=== PATIENT | female | born 1955 | race Asian ===

== ENCOUNTER → 2017-09-06 | Outpatient (CLI) | payer OTHER | END | disposition home or self-care (01) | LOC: RADPV 09:44 | PROVIDERS: ATTEND Internal Medicine Nephrology | DX: N18.3 Chronic kidney disease, stage 3 (moderate) (principal) | CPT/HCPCS: 76770 ==

== ENCOUNTER 2020-12-10 02:37 | Inpatient (IN) | payer OTHER ==
[~2020-12-10] VITALS: Ht 152.4 cm; Wt 53.0 kg
[2020-12-10 03:09] LABS: BASOPHILS % (AUTO) 1.1 % (0.0-2.0); EOSINOPHILS % (AUTO) 2.2 % (1.0-6.0); HEMATOCRIT 42.1 % (36-46); HEMOGLOBIN 13.8 g/dL (12.0-16.0); LYMPHOCYTES # (AUTO) 2.5 K/uL (1.0-4.8); LYMPHOCYTES % (AUTO) 21.6 % (22.0-44.0); MEAN CORPUSCULAR HEMOGLOBIN 28.7 pg (26.0-34.0); MEAN CORPUSCULAR HGB CONC 32.8 G/dL (31.0-37.0); MEAN CORPUSCULAR VOLUME 88 fL (80-100); MONOCYTES # (AUTO) 0.8 K/uL (0.1-1.0); MONOCYTES % (AUTO) 6.8 % (2.0-9.0); NEUTROPHILS % (AUTO) 68.3 % (40.0-70.0); PLATELET COUNT (AUTO) 256 K/uL (150-450); RED BLOOD CELL COUNT(AUTO) 4.81 MIL/uL (4.00-5.20); RED CELL DISTRIBUTION WIDTH 13.2 % (11.5-14.5)
[2020-12-10] MEDS ORDERED: SODIUM CHLORIDE 0.9% 100 ML ONE (03:14)
[2020-12-10] MEDS ORDERED: MORPHINE SULFATE 4 MG/ML SYRINGE IVP ONE (03:15)
[2020-12-10] MEDS ORDERED: ONDANSETRON HCL 4 MG/2 ML VIAL IVP ONE (03:15)
[2020-12-10] MEDS ORDERED: NiCARDipine HCL 25 MG in SODIUM CHLORIDE 0.9% 240 ML IV PRN ×2 (03:15→05:45)
[2020-12-10] MEDS ORDERED: IOHEXOL 350 MG/ML 100 ML VIAL ONE (03:15)
[2020-12-10 03:21] LABS: INR 0.9 (0.9-1.1); PROTHROMBIN TIME 9.7 SEC (9.4-11.6)
[2020-12-10 03:25] LABS: ALBUMIN 3.4 g/dL (3.4-5.0); BILIRUBIN,TOTAL 0.2 mg/dL (0.1-1.0); CALCIUM, TOTAL 8.7 mg/dL (8.8-10.5); CREATININE 2.7 mg/dL (0.60-1.30); POTASSIUM 3.7 mmol/L (3.5-5.1)
[2020-12-10] MEDS ORDERED: INSULIN REGULAR, HUMAN 100 UNITS/ML IVP ONE (04:00)
[2020-12-10 04:38] LABS: GLUCOSE,POINT OF CARE 465 MG/DL (70-110)
[2020-12-10 05:53] LABS: GLUCOSE,POINT OF CARE 444 MG/DL (70-110)
[2020-12-10] MEDS ORDERED: LINA5TAB PO (05:58)
[2020-12-10] MEDS ORDERED: SIMV-259 PO (05:58)
[2020-12-10] MEDS ORDERED: LOSA50TA37 PO (05:58)
[2020-12-10] MEDS ORDERED: ATEN100T92 PO (05:58)
[2020-12-10] MEDS ORDERED: CLON0.1T2 PO (05:58)
[2020-12-10] MEDS ORDERED: ASPI-1444 PO (05:58)
[2020-12-10] MEDS ORDERED: GLIP5 PO (05:58)
[2020-12-10] MEDS ORDERED: INSULIN GLARGINE,HUM.REC.ANLOG 100 UNITS/ML SQ ONE (06:00)
[2020-12-10] MEDS ORDERED: DEXTROSE 50%-WATER 25 GM/50 ML SYRINGE IVP PRN (06:00)
[2020-12-10] MEDS: INSULIN LISPRO 100 UNITS/ML SQ PRN ×4 (08:07→23:13)
[2020-12-10] MEDS: LevETIRAcetam 500 MG in DEXTROSE 5%-WATER 100 ML IV SCH ×2 (08:07→19:16)
[2020-12-10 09:13] LABS: GLUCOSE,POINT OF CARE 426 MG/DL (70-110)
[2020-12-10] MEDS: INSULIN GLARGINE,HUM.REC.ANLOG 100 UNITS/ML SQ SCH (09:53)
[2020-12-10 10:12] LABS: GLUCOSE,POINT OF CARE 426 MG/DL (70-110)
[2020-12-10 11:16] LABS: GLUCOSE,POINT OF CARE 355 MG/DL (70-110)
[2020-12-10 14:26] LABS: GLUCOSE,POINT OF CARE 125 MG/DL (70-110)
[2020-12-10 15:22] LABS: GLUCOSE,POINT OF CARE 110 MG/DL (70-110)
[2020-12-10 17:28] LABS: GLUCOSE,POINT OF CARE 154 MG/DL (70-110)
[2020-12-10 20:13] LABS: GLUCOSE,POINT OF CARE 220 MG/DL (70-110)
[2020-12-10] MEDS ORDERED: DEXTROSE 5%-0.45% SODIUM CHL 1,000 ML IV ONE (21:00)
[2020-12-10 21:31] LABS: COVID AG,FIA SOURCE NASOPHARYNGEAL
[2020-12-10] MEDS: ONDANSETRON HCL 4 MG/2 ML VIAL IVP PRN (21:56)
[2020-12-10 23:18] LABS: GLUCOSE,POINT OF CARE 191 MG/DL (70-110)
[2020-12-11] MEDS: INSULIN LISPRO 100 UNITS/ML SQ PRN ×6 (03:03→21:38)
[2020-12-11 03:22] LABS: GLUCOSE,POINT OF CARE 142 MG/DL (70-110)
[2020-12-11] MEDS: LevETIRAcetam 500 MG in DEXTROSE 5%-WATER 100 ML IV SCH ×2 (05:26→19:26)
[2020-12-11] MEDS: HydrALAZINE HCL 20 MG/ML VIAL IVP PRN (05:31)
[2020-12-11 05:33] LABS: GLUCOSE,POINT OF CARE 130 MG/DL (70-110)
[2020-12-11 05:53] LABS: BASOPHILS % (AUTO) 0.8 % (0.0-2.0); EOSINOPHILS % (AUTO) 1.2 % (1.0-6.0); HEMATOCRIT 41.4 % (36-46); HEMOGLOBIN 13.6 g/dL (12.0-16.0); LYMPHOCYTES # (AUTO) 3.1 K/uL (1.0-4.8); LYMPHOCYTES % (AUTO) 32.9 % (22.0-44.0); MEAN CORPUSCULAR HEMOGLOBIN 28.6 pg (26.0-34.0); MEAN CORPUSCULAR HGB CONC 32.9 G/dL (31.0-37.0); MEAN CORPUSCULAR VOLUME 87 fL (80-100); MONOCYTES # (AUTO) 0.7 K/uL (0.1-1.0); MONOCYTES % (AUTO) 7.3 % (2.0-9.0); NEUTROPHILS # (AUTO) 5.5 K/uL (1.8-7.7); NEUTROPHILS % (AUTO) 57.8 % (40.0-70.0); PLATELET COUNT (AUTO) 268 K/uL (150-450); RED BLOOD CELL COUNT(AUTO) 4.77 MIL/uL (4.00-5.20); RED CELL DISTRIBUTION WIDTH 13.1 % (11.5-14.5)
[2020-12-11 06:06] LABS: CREATININE 3.76 mg/dL (0.60-1.30); MAGNESIUM 2.3 mg/dL (1.80-2.40); PHOSPHORUS 4.6 mg/dL (2.5-4.9); POTASSIUM 3.5 mmol/L (3.5-5.1)
[2020-12-11 08:00] VITALS: BP 112/69
[2020-12-11] MEDS: INSULIN GLARGINE,HUM.REC.ANLOG 100 UNITS/ML SQ SCH (08:43)
[2020-12-11 09:09] LABS: GLUCOSE,POINT OF CARE 224 MG/DL (70-110)
[2020-12-11] MEDS: ONDANSETRON HCL 4 MG/2 ML VIAL IVP PRN (10:26)
[2020-12-11 12:00] VITALS: BP 124/62
[2020-12-11 13:12] LABS: GLUCOSE,POINT OF CARE 256 MG/DL (70-110)
[2020-12-11] MEDS: CHOLECALCIFEROL (VIT D3) 5,000 [125 MCG] UNITS CAPSULE PO SCH (14:45)
[2020-12-11 16:00] VITALS: BP 135/52
[2020-12-11] MEDS: AmLODIPine BESYLATE 5 MG TABLET PO SCH (17:23)
[2020-12-11 17:52] LABS: GLUCOSE,POINT OF CARE 169 MG/DL (70-110)
[2020-12-11 19:45] LABS: GLUCOSE,POINT OF CARE 128 MG/DL (70-110)
[2020-12-11 20:00] VITALS: BP 117/63
[2020-12-11] MEDS ORDERED: METOCLOPRAMIDE HCL 5 MG/ML 2 ML VIAL IVP PRN (21:15)
[2020-12-11 21:36] LABS: GLUCOSE,POINT OF CARE 237 MG/DL (70-110)
[2020-12-12] VITALS: BP 141/70
[2020-12-12] MEDS: INSULIN LISPRO 100 UNITS/ML SQ PRN ×5 (00:07→21:33)
[2020-12-12 00:16] LABS: GLUCOSE,POINT OF CARE 147 MG/DL (70-110)
[2020-12-12 02:50] LABS: GLUCOSE,POINT OF CARE 99 MG/DL (70-110)
[2020-12-12] MEDS: HydrALAZINE HCL 20 MG/ML VIAL IVP PRN ×2 (03:28→18:55)
[2020-12-12 04:00] VITALS: BP 114/61
[2020-12-12] MEDS: LevETIRAcetam 500 MG in DEXTROSE 5%-WATER 100 ML IV SCH ×2 (06:39→20:00)
[2020-12-12 08:00] VITALS: BP 126/75
[2020-12-12] MEDS: CHOLECALCIFEROL (VIT D3) 5,000 [125 MCG] UNITS CAPSULE PO SCH (09:00)
[2020-12-12] MEDS: AmLODIPine BESYLATE 5 MG TABLET PO SCH (09:00)
[2020-12-12] MEDS: INSULIN GLARGINE,HUM.REC.ANLOG 100 UNITS/ML SQ SCH (09:00)
[2020-12-12 09:18] LABS: GLUCOSE,POINT OF CARE 400 MG/DL (70-110)
[2020-12-12 12:00] VITALS: BP 132/94
[2020-12-12 15:50] LABS: GLUCOSE,POINT OF CARE 213 MG/DL (70-110)
[2020-12-12 15:50] LABS: GLUCOSE,POINT OF CARE 317 MG/DL (70-110)
[2020-12-12 15:51] LABS: GLUCOSE,POINT OF CARE 197 MG/DL (70-110)
[2020-12-12 16:00] VITALS: BP 142/94
[2020-12-12] MEDS: ONDANSETRON HCL 4 MG/2 ML VIAL IVP PRN (18:56)
[2020-12-12 19:58] LABS: GLUCOSE,POINT OF CARE 133 MG/DL (70-110)
[2020-12-12 20:00] VITALS: BP_SYST 142; BP_SYST 144; BP_DIAS 75
[2020-12-13] VITALS: BP 125/68
[2020-12-13] MEDS: INSULIN LISPRO 100 UNITS/ML SQ PRN ×6 (00:11→21:25)
[2020-12-13 01:33] LABS: GLUCOSE,POINT OF CARE 366 MG/DL (70-110)
[2020-12-13 01:33] LABS: GLUCOSE,POINT OF CARE 246 MG/DL (70-110)
[2020-12-13 02:49] LABS: GLUCOSE,POINT OF CARE 276 MG/DL (70-110)
[2020-12-13 04:00] VITALS: BP 142/80
[2020-12-13] MEDS: LevETIRAcetam 500 MG in DEXTROSE 5%-WATER 100 ML IV SCH ×2 (06:05→21:27)
[2020-12-13 06:50] LABS: GLUCOSE,POINT OF CARE 110 MG/DL (70-110)
[2020-12-13] MEDS: HydrALAZINE HCL 20 MG/ML VIAL IVP PRN (06:53)
[2020-12-13 08:00] VITALS: BP 137/82
[2020-12-13] MEDS: INSULIN GLARGINE,HUM.REC.ANLOG 100 UNITS/ML SQ SCH (09:00)
[2020-12-13] MEDS: CHOLECALCIFEROL (VIT D3) 5,000 [125 MCG] UNITS CAPSULE PO SCH (09:55)
[2020-12-13] MEDS: CARVEDILOL 6.25 MG TABLET PO SCH ×2 (09:55→21:25)
[2020-12-13] MEDS: AmLODIPine BESYLATE 5 MG TABLET PO SCH (09:55)
[2020-12-13 10:43] LABS: BASOPHILS % (AUTO) 1.2 % (0.0-2.0); EOSINOPHILS % (AUTO) 0.6 % (1.0-6.0); HEMATOCRIT 38.3 % (36-46); HEMOGLOBIN 12.5 g/dL (12.0-16.0); LYMPHOCYTES # (AUTO) 2.4 K/uL (1.0-4.8); LYMPHOCYTES % (AUTO) 20.2 % (22.0-44.0); MEAN CORPUSCULAR HEMOGLOBIN 28.5 pg (26.0-34.0); MEAN CORPUSCULAR HGB CONC 32.5 G/dL (31.0-37.0); MEAN CORPUSCULAR VOLUME 88 fL (80-100); MONOCYTES # (AUTO) 0.9 K/uL (0.1-1.0); MONOCYTES % (AUTO) 7.6 % (2.0-9.0); NEUTROPHILS # (AUTO) 8.4 K/uL (1.8-7.7); NEUTROPHILS % (AUTO) 70.4 % (40.0-70.0); PLATELET COUNT (AUTO) 254 K/uL (150-450); RED BLOOD CELL COUNT(AUTO) 4.36 MIL/uL (4.00-5.20); RED CELL DISTRIBUTION WIDTH 13.1 % (11.5-14.5)
[2020-12-13 11:01] LABS: CALCIUM, TOTAL 8.2 mg/dL (8.8-10.5); CREATININE 8.73 mg/dL (0.60-1.30); POTASSIUM 4.6 mmol/L (3.5-5.1)
[2020-12-13 11:05] LABS: MAGNESIUM 2.1 mg/dL (1.80-2.40); PHOSPHORUS 7.6 mg/dL (2.5-4.9)
[2020-12-13 12:00] VITALS: BP 126/74
[2020-12-13 12:15] LABS: GLUCOSE,POINT OF CARE 153 MG/DL (70-110)
[2020-12-13 12:15] LABS: GLUCOSE,POINT OF CARE 169 MG/DL (70-110)
[2020-12-13 12:16] LABS: GLUCOSE,POINT OF CARE 153 MG/DL (70-110)
[2020-12-13 15:33] LABS: GLUCOSE,POINT OF CARE 158 MG/DL (70-110)
[2020-12-13 16:00] VITALS: BP 143/79
[2020-12-13 18:37] LABS: GLUCOSE,POINT OF CARE 89 MG/DL (70-110)
[2020-12-13 20:00] VITALS: BP 137/50
[2020-12-14] VITALS: BP 158/74
[2020-12-14 00:38] LABS: GLUCOSE,POINT OF CARE 311 MG/DL (70-110)
[2020-12-14] MEDS: INSULIN LISPRO 100 UNITS/ML SQ PRN ×4 (00:38→21:05)
[2020-12-14 01:23] LABS: GLUCOSE,POINT OF CARE 265 MG/DL (70-110)
[2020-12-14 04:00] VITALS: BP 136/56
[2020-12-14 08:00] VITALS: BP 136/77
[2020-12-14] MEDS: CARVEDILOL 6.25 MG TABLET PO SCH ×2 (08:18→20:56)
[2020-12-14] MEDS: LevETIRAcetam 500 MG in DEXTROSE 5%-WATER 100 ML IV SCH ×2 (08:18→20:55)
[2020-12-14] MEDS: CHOLECALCIFEROL (VIT D3) 5,000 [125 MCG] UNITS CAPSULE PO SCH (08:19)
[2020-12-14] MEDS: AmLODIPine BESYLATE 5 MG TABLET PO SCH (08:19)
[2020-12-14] MEDS: INSULIN GLARGINE,HUM.REC.ANLOG 100 UNITS/ML SQ SCH (08:20)
[2020-12-14 08:21] LABS: GLUCOSE,POINT OF CARE 129 MG/DL (70-110)
[2020-12-14 08:21] LABS: GLUCOSE,POINT OF CARE 152 MG/DL (70-110)
[2020-12-14 08:21] LABS: GLUCOSE,POINT OF CARE 80 MG/DL (70-110)
[2020-12-14 10:31] LABS: EOSINOPHILS % (AUTO) 1.4 % (1.0-6.0); HEMATOCRIT 37.9 % (36-46); HEMOGLOBIN 12.2 g/dL (12.0-16.0); LYMPHOCYTES % (AUTO) 22.5 % (22.0-44.0); MEAN CORPUSCULAR HEMOGLOBIN 28.6 pg (26.0-34.0); MEAN CORPUSCULAR HGB CONC 32.2 G/dL (31.0-37.0); MEAN CORPUSCULAR VOLUME 89 fL (80-100); MONOCYTES # (AUTO) 0.5 K/uL (0.1-1.0); MONOCYTES % (AUTO) 6.2 % (2.0-9.0); NEUTROPHILS % (AUTO) 68.9 % (40.0-70.0); PLATELET COUNT (AUTO) 253 K/uL (150-450); RED BLOOD CELL COUNT(AUTO) 4.27 MIL/uL (4.00-5.20); RED CELL DISTRIBUTION WIDTH 13.2 % (11.5-14.5)
[2020-12-14] MEDS: SODIUM CHLORIDE 0.9% 1,000 ML IV SCH ×2 (10:31→23:20)
[2020-12-14 10:41] LABS: CREATININE 9.23 mg/dL (0.60-1.30); POTASSIUM 5.5 mmol/L (3.5-5.1)
[2020-12-14 11:43] LABS: APPEARANCE,URINE CLEAR (CLEAR); BILIRUBIN,URINE NEGATIVE (NEGATIVE); GLUCOSE, URINE (UA) 250 mg/dL (NEGATIVE); KETONES,URINE NEGATIVE (NEGATIVE); LEUKOCYTE ESTERASE ,URINE TRACE (NEGATIVE); NITRATE,URINE NEGATIVE (NEGATIVE); OCCULT BLOOD,URINE MODERATE (NEGATIVE); PH,URINE 5.5 (5.0-8.0); PROTEIN,URINE SEE CONFIRM (NEGATIVE); UROBILINOGEN,URINE 0.2 mg/dL (<=1.0)
[2020-12-14 11:46] LABS: CREATININE,URINE RANDOM 35.2 mg/dL (30.0-125.0); PROTEIN,URINE RANDOM 189 mg/dL (0-11.9); SODIUM,URINE RANDOM 42 mmol/l (20-110)
[2020-12-14 12:00] VITALS: BP 150/51
[2020-12-14 12:01] LABS: SULFOSALICYLIC ACID,URINE 2+ (Negative)
[2020-12-14 12:03] LABS: BACTERIA,URINE None Seen /HPF (None Seen); SQUAMOUS EPITHELIAL CELL,UR Few /LPF (None Seen)
[2020-12-14 12:06] LABS: GLUCOSE,POINT OF CARE 301 MG/DL (70-110)
[2020-12-14 16:00] VITALS: BP 132/57
[2020-12-14 17:25] LABS: GLUCOSE,POINT OF CARE 214 MG/DL (70-110)
[2020-12-14 20:00] VITALS: BP 144/77
[2020-12-14 21:14] LABS: GLUCOSE,POINT OF CARE 313 MG/DL (70-110)
[2020-12-15] VITALS: BP 124/63
[2020-12-15 04:00] VITALS: BP 138/73
[2020-12-15] MEDS: INSULIN LISPRO 100 UNITS/ML SQ PRN ×3 (06:31→12:30)
[2020-12-15 06:37] LABS: GLUCOSE,POINT OF CARE 157 MG/DL (70-110)
[2020-12-15 06:40] LABS: CALCIUM, TOTAL 7.5 mg/dL (8.8-10.5); CHOL/HDL RATIO 4.5 (3.9-5.7); CREATININE 8.22 mg/dL (0.60-1.30); MAGNESIUM 2.5 mg/dL (1.80-2.40); PHOSPHORUS 7.8 mg/dL (2.5-4.9); POTASSIUM 4.6 mmol/L (3.5-5.1)
[2020-12-15 07:54] LABS: GLUCOSE,POINT OF CARE 115 MG/DL (70-110)
[2020-12-15 08:00] VITALS: BP 182/70
[2020-12-15] MEDS: AmLODIPine BESYLATE 5 MG TABLET PO SCH (08:00)
[2020-12-15] MEDS: LevETIRAcetam 500 MG in DEXTROSE 5%-WATER 100 ML IV SCH ×2 (08:00→20:28)
[2020-12-15] MEDS: CARVEDILOL 6.25 MG TABLET PO SCH ×2 (08:00→20:32)
[2020-12-15] MEDS: CHOLECALCIFEROL (VIT D3) 5,000 [125 MCG] UNITS CAPSULE PO SCH (08:05)
[2020-12-15] MEDS: HydrALAZINE HCL 20 MG/ML VIAL IVP PRN (08:44)
[2020-12-15] MEDS: INSULIN GLARGINE,HUM.REC.ANLOG 100 UNITS/ML SQ SCH (09:00)
[2020-12-15 12:00] VITALS: BP 119/69
[2020-12-15] MEDS: SODIUM BICARBONATE 650 MG TABLET PO SCH ×2 (12:29→20:27)
[2020-12-15 14:04] LABS: COVID AG,FIA SOURCE NASAL SWAB
[2020-12-15 16:00] VITALS: BP 148/80
[2020-12-15 17:43] LABS: GLUCOSE,POINT OF CARE 142 MG/DL (70-110)
[2020-12-15 17:43] LABS: GLUCOSE,POINT OF CARE 244 MG/DL (70-110)
[2020-12-15 20:00] VITALS: BP 141/93
[2020-12-15 23:25] LABS: GLUCOSE,POINT OF CARE 276 MG/DL (70-110)
[2020-12-16] VITALS: BP 144/72
[2020-12-16 04:00] VITALS: BP 135/78
[2020-12-16 05:35] LABS: CALCIUM, TOTAL 7.9 mg/dL (8.8-10.5); CREATININE 6.06 mg/dL (0.60-1.30); MAGNESIUM 2.3 mg/dL (1.80-2.40); PHOSPHORUS 6.2 mg/dL (2.5-4.9)
[2020-12-16] MEDS: CARVEDILOL 6.25 MG TABLET PO SCH (09:05)
[2020-12-16] MEDS: AmLODIPine BESYLATE 5 MG TABLET PO SCH (09:05)
[2020-12-16] MEDS: CHOLECALCIFEROL (VIT D3) 5,000 [125 MCG] UNITS CAPSULE PO SCH (09:06)
[2020-12-16] MEDS: SODIUM BICARBONATE 650 MG TABLET PO SCH (09:06)
[2020-12-16] MEDS: INSULIN GLARGINE,HUM.REC.ANLOG 100 UNITS/ML SQ SCH (09:15)
[2020-12-16 09:45] VITALS: BP 157/76
[2020-12-16] MEDS: LevETIRAcetam 500 MG in DEXTROSE 5%-WATER 100 ML IV SCH (10:27)
[2020-12-16 11:42] VITALS: BP 148/80
[2020-12-16 12:09] LABS: GLUCOSE,POINT OF CARE 102 MG/DL (70-110)
[2020-12-16] MEDS: INSULIN LISPRO 100 UNITS/ML SQ PRN (13:05)
[2020-12-16 15:46] VITALS: BP 157/78
[2020-12-16] MEDS ORDERED: AMLO-257 PO (16:29)
[2020-12-16] MEDS ORDERED: ATOR20TA86 PO (16:29)
[2020-12-16] MEDS ORDERED: CHOL500013 PO (16:30)
[2020-12-16] MEDS ORDERED: CARV6 PO (16:30)
[2020-12-16] MEDS ORDERED: LEVE500T53 PO (16:31)
[2020-12-16] MEDS ORDERED: INSLAN SQ (16:31)
[2020-12-16] MEDS ORDERED: SODI650T33 PO (16:32)
[2020-12-16] MEDS ORDERED: INSU100V SQ (16:33)
[2020-12-16 16:42] VITALS: BP 130/92
[2020-12-16 18:16] LABS: GLUCOMETER DEV NAME(LOC) 5S.1; GLUCOSE,POINT OF CARE 294 MG/DL (70-110)
[2020-12-16 18:16] LABS: GLUCOMETER DEV NAME(LOC) 5S.1; GLUCOSE,POINT OF CARE 251 MG/DL (70-110)
[2020-12-16 18:16] LABS: GLUCOMETER DEV NAME(LOC) 5S.1; GLUCOSE,POINT OF CARE 401 MG/DL (70-110)
[2020-12-16 18:16] LABS: GLUCOMETER DEV NAME(LOC) 5S.1; GLUCOSE,POINT OF CARE 71 MG/DL (70-110)
[2020-12-16] MEDS ORDERED: ATORVASTATIN CALCIUM 20 MG TABLET PO SCH (21:00)
== END 2020-12-16 17:55 | DRG 44 ==
LOC: EMS 02:41 → ICU 22:11 → 5S 12-16 09:30
PROVIDERS: ADMIT Internal Medicine; ATTEND Internal Medicine
DX: I61.4 Nontraumatic intracerebral hemorrhage in cerebellum (principal); I63.9 Cerebral infarction, unspecified; G93.6 Cerebral edema; N17.9 Acute kidney failure, unspecified; E11.319 Type 2 diabetes mellitus with unspecified diabetic retinopathy without macular edema; E11.22 Type 2 diabetes mellitus with diabetic chronic kidney disease; I12.9 Hypertensive chronic kidney disease with stage 1 through stage 4 chronic kidney disease, or unspecified chronic kidney disease; I16.1 Hypertensive emergency; N18.4 Chronic kidney disease, stage 4 (severe); N25.81 Secondary hyperparathyroidism of renal origin; R29.710 NIHSS score 10; E11.65 Type 2 diabetes mellitus with hyperglycemia; Z20.822 Contact with and (suspected) exposure to COVID-19; Z79.4 Long term (current) use of insulin; Z79.899 Other long term (current) drug therapy; Z82.49 Family history of ischemic heart disease and other diseases of the circulatory system; Z83.3 Family history of diabetes mellitus; Z91.14 Patient's other noncompliance with medication regimen
CPT/HCPCS: 70450; 70496; 70551; 71045; 76770; 80048; 80053; 80061; 81001; 81002; 82306; 82570; 82947; 82962; 83036; 83735; 83935; 83970; 84100; 84156; 84300; 84484; 85025; 85610; 85730; 86850; 86900; 86901; 87081; 92507; 92526; 92610; 93005; 93306; 97110; 97112; 97116; 97162; 97166; 97530; 97535; 99291; G0378; J0360; J0712; J1815; J2405; J2765; J3490; J7030; J7050; J7060; Q9967; 36415-L1; 36415-TC

== ENCOUNTER 2020-12-16 17:55 | Inpatient (IN) | payer OTHER ==
[~2020-12-16] VITALS: Ht 152.4 cm; Wt 52.2 kg
[~2020-12-16 17:55] MED LIST: AMLO-257 PO; ASPI-1444 PO; ATEN100T92 PO; ATOR20TA86 PO; CARV6 PO; CHOL500013 PO; CLON0.1T2 PO; GLIP5 PO; INSLAN SQ; INSU100V SQ; LEVE500T20 PO; LINA5TAB PO; LOSA50TA37 PO; SIMV-259 PO; SODI650T33 PO
[2020-12-16 18:10] VITALS: BP 149/85
[2020-12-16] MEDS ORDERED: ACETAMINOPHEN 325 MG TABLET PO PRN (20:15)
[2020-12-16] MEDS ORDERED: DEXTROSE 50%-WATER 25 GM/50 ML SYRINGE IVP PRN (20:30)
[2020-12-16] MEDS: SENNA 187 MG TABLET PO SCH (21:00)
[2020-12-16] MEDS: DOCUSATE SODIUM 100 MG CAPSULE PO SCH (21:00)
[2020-12-16 22:00] VITALS: BP 135/77
[2020-12-16] MEDS: LevETIRAcetam 500 MG TABLET PO SCH (22:00)
[2020-12-16] MEDS: ATORVASTATIN CALCIUM 20 MG TABLET PO SCH (22:00)
[2020-12-16] MEDS: CARVEDILOL 6.25 MG TABLET PO SCH (22:00)
[2020-12-16] MEDS: INSULIN LISPRO 100 UNITS/ML SQ PRN (22:02)
[2020-12-16] MEDS: SODIUM BICARBONATE 650 MG TABLET PO SCH (22:02)
[2020-12-17 03:05] LABS: GLUCOMETER DEV NAME(LOC) 2WR.1C; GLUCOSE,POINT OF CARE 351 MG/DL (70-110)
[2020-12-17 06:19] LABS: GLUCOMETER DEV NAME(LOC) 2WR.1C; GLUCOSE,POINT OF CARE 249 MG/DL (70-110)
[2020-12-17 06:31] LABS: BASOPHILS % (AUTO) 0.9 % (0.0-2.0); EOSINOPHILS % (AUTO) 2.6 % (1.0-6.0); HEMATOCRIT 34.2 % (36-46); HEMOGLOBIN 11.3 g/dL (12.0-16.0); LYMPHOCYTES # (AUTO) 2.1 K/uL (1.0-4.8); MEAN CORPUSCULAR HGB CONC 32.9 G/dL (31.0-37.0); MEAN CORPUSCULAR VOLUME 88 fL (80-100); MONOCYTES % (AUTO) 11.1 % (2.0-9.0); NEUTROPHILS # (AUTO) 5.3 K/uL (1.8-7.7); NEUTROPHILS % (AUTO) 61.4 % (40.0-70.0); PLATELET COUNT (AUTO) 265 K/uL (150-450); RED BLOOD CELL COUNT(AUTO) 3.89 MIL/uL (4.00-5.20); RED CELL DISTRIBUTION WIDTH 12.7 % (11.5-14.5)
[2020-12-17 06:52] LABS: ALBUMIN 2.6 g/dL (3.4-5.0); BILIRUBIN,TOTAL 0.2 mg/dL (0.1-1.0); CALCIUM, TOTAL 8.3 mg/dL (8.8-10.5); CREATININE 4.67 mg/dL (0.60-1.30); POTASSIUM 4.9 mmol/L (3.5-5.1); TOTAL PROTEIN, SERUM 7.2 g/dL (6.4-8.2)
[2020-12-17 07:55] VITALS: BP 138/75
[2020-12-17] MEDS: INSULIN GLARGINE,HUM.REC.ANLOG 100 UNITS/ML SQ SCH (08:32)
[2020-12-17] MEDS: INSULIN LISPRO 100 UNITS/ML SQ PRN ×3 (08:33→21:26)
[2020-12-17] MEDS: LevETIRAcetam 500 MG TABLET PO SCH ×2 (08:35→21:18)
[2020-12-17] MEDS: AmLODIPine BESYLATE 5 MG TABLET PO SCH (08:35)
[2020-12-17] MEDS: DOCUSATE SODIUM 100 MG CAPSULE PO SCH ×2 (08:35→21:18)
[2020-12-17] MEDS: CARVEDILOL 6.25 MG TABLET PO SCH ×2 (08:35→21:17)
[2020-12-17] MEDS: CHOLECALCIFEROL (VIT D3) 5,000 [125 MCG] UNITS CAPSULE PO SCH (08:35)
[2020-12-17] MEDS: SODIUM BICARBONATE 650 MG TABLET PO SCH ×2 (08:36→21:17)
[2020-12-17 17:31] LABS: GLUCOMETER DEV NAME(LOC) 2WR.2B; GLUCOSE,POINT OF CARE 104 MG/DL (70-110)
[2020-12-17] MEDS: SENNA 187 MG TABLET PO SCH (21:17)
[2020-12-17 21:18] VITALS: BP 136/84
[2020-12-17] MEDS: ATORVASTATIN CALCIUM 20 MG TABLET PO SCH (21:18)
[2020-12-17] MEDS: ETHYL ALCOHOL 62% ANTISEPTIC NASAL INHALANT 0.6 ML AMPUL NASAL SCH (21:28)
[2020-12-17 22:38] LABS: GLUCOMETER DEV NAME(LOC) 2WR.2B; GLUCOSE,POINT OF CARE 227 MG/DL (70-110)
[2020-12-17 23:53] LABS: GLUCOMETER DEV NAME(LOC) 2WR.1C; GLUCOSE,POINT OF CARE 253 MG/DL (70-110)
[2020-12-18] VITALS: BP 122/65
[2020-12-18 06:23] LABS: GLUCOMETER DEV NAME(LOC) 2WR.2B; GLUCOSE,POINT OF CARE 283 MG/DL (70-110)
[2020-12-18] MEDS: SODIUM BICARBONATE 650 MG TABLET PO SCH ×2 (08:50→20:24)
[2020-12-18] MEDS: CARVEDILOL 6.25 MG TABLET PO SCH ×2 (08:50→20:24)
[2020-12-18] MEDS: CHOLECALCIFEROL (VIT D3) 5,000 [125 MCG] UNITS CAPSULE PO SCH (08:50)
[2020-12-18] MEDS: AmLODIPine BESYLATE 5 MG TABLET PO SCH (08:50)
[2020-12-18] MEDS: LevETIRAcetam 500 MG TABLET PO SCH ×2 (08:50→20:24)
[2020-12-18] MEDS: DOCUSATE SODIUM 100 MG CAPSULE PO SCH ×2 (08:50→20:24)
[2020-12-18] MEDS: INSULIN GLARGINE,HUM.REC.ANLOG 100 UNITS/ML SQ SCH (08:52)
[2020-12-18] MEDS: INSULIN LISPRO 100 UNITS/ML SQ PRN ×4 (08:53→20:35)
[2020-12-18] MEDS: ETHYL ALCOHOL 62% ANTISEPTIC NASAL INHALANT 0.6 ML AMPUL NASAL SCH ×2 (08:54→20:24)
[2020-12-18 09:17] VITALS: BP 124/76
[2020-12-18 12:40] LABS: GLUCOMETER DEV NAME(LOC) 2WR.1C; GLUCOSE,POINT OF CARE 289 MG/DL (70-110)
[2020-12-18 16:02] VITALS: BP 138/74
[2020-12-18 19:25] LABS: GLUCOMETER DEV NAME(LOC) 2WR.2B; GLUCOSE,POINT OF CARE 145 MG/DL (70-110)
[2020-12-18 20:23] VITALS: BP 135/76
[2020-12-18] MEDS: SENNA 187 MG TABLET PO SCH (20:24)
[2020-12-18] MEDS: ATORVASTATIN CALCIUM 20 MG TABLET PO SCH (20:24)
[2020-12-19 02:00] VITALS: BP 130/74
[2020-12-19 04:36] LABS: GLUCOMETER DEV NAME(LOC) 2WR.1C; GLUCOSE,POINT OF CARE 378 MG/DL (70-110)
[2020-12-19 05:51] LABS: GLUCOMETER DEV NAME(LOC) 2WR.2B; GLUCOSE,POINT OF CARE 303 MG/DL (70-110)
[2020-12-19] MEDS: SODIUM BICARBONATE 650 MG TABLET PO SCH ×2 (07:53→20:06)
[2020-12-19] MEDS: AmLODIPine BESYLATE 5 MG TABLET PO SCH (07:54)
[2020-12-19] MEDS: CHOLECALCIFEROL (VIT D3) 5,000 [125 MCG] UNITS CAPSULE PO SCH (07:54)
[2020-12-19] MEDS: DOCUSATE SODIUM 100 MG CAPSULE PO SCH ×2 (07:55→20:05)
[2020-12-19] MEDS: CARVEDILOL 6.25 MG TABLET PO SCH ×2 (07:55→20:05)
[2020-12-19] MEDS: LevETIRAcetam 500 MG TABLET PO SCH ×2 (07:56→20:05)
[2020-12-19] MEDS: INSULIN LISPRO 100 UNITS/ML SQ PRN ×4 (08:16→21:40)
[2020-12-19] MEDS: ETHYL ALCOHOL 62% ANTISEPTIC NASAL INHALANT 0.6 ML AMPUL NASAL SCH ×2 (08:18→20:05)
[2020-12-19] MEDS ORDERED: INSULIN GLARGINE,HUM.REC.ANLOG 100 UNITS/ML SQ SCH (09:00)
[2020-12-19 09:31] VITALS: BP 131/79
[2020-12-19 12:35] LABS: GLUCOMETER DEV NAME(LOC) 2WR.1C; GLUCOSE,POINT OF CARE 168 MG/DL (70-110)
[2020-12-19 13:16] LABS: CALCIUM, TOTAL 8.9 mg/dL (8.8-10.5); CREATININE 3.32 mg/dL (0.60-1.30); PHOSPHORUS 3.8 mg/dL (2.5-4.9); POTASSIUM 4.1 mmol/L (3.5-5.1)
[2020-12-19 17:00] VITALS: BP 149/95
[2020-12-19 18:55] LABS: GLUCOMETER DEV NAME(LOC) 2WR.1C; GLUCOSE,POINT OF CARE 233 MG/DL (70-110)
[2020-12-19 20:05] VITALS: BP 139/77
[2020-12-19] MEDS: SENNA 187 MG TABLET PO SCH (20:05)
[2020-12-19] MEDS: ATORVASTATIN CALCIUM 20 MG TABLET PO SCH (20:06)
[2020-12-19 23:31] LABS: GLUCOMETER DEV NAME(LOC) 2WR.2B; GLUCOSE,POINT OF CARE 203 MG/DL (70-110)
[2020-12-20] VITALS: BP 118/69
[2020-12-20] MEDS: ETHYL ALCOHOL 62% ANTISEPTIC NASAL INHALANT 0.6 ML AMPUL NASAL SCH ×2 (08:01→19:59)
[2020-12-20] MEDS: CARVEDILOL 6.25 MG TABLET PO SCH ×2 (08:02→19:59)
[2020-12-20] MEDS: DOCUSATE SODIUM 100 MG CAPSULE PO SCH ×2 (08:02→19:46)
[2020-12-20] MEDS: CHOLECALCIFEROL (VIT D3) 5,000 [125 MCG] UNITS CAPSULE PO SCH (08:02)
[2020-12-20] MEDS: SODIUM BICARBONATE 650 MG TABLET PO SCH (08:02)
[2020-12-20] MEDS: AmLODIPine BESYLATE 5 MG TABLET PO SCH (08:02)
[2020-12-20] MEDS: LevETIRAcetam 500 MG TABLET PO SCH ×2 (08:02→19:59)
[2020-12-20] MEDS: INSULIN LISPRO 100 UNITS/ML SQ PRN ×4 (08:08→20:01)
[2020-12-20 08:15] VITALS: BP 135/76
[2020-12-20] MEDS ORDERED: INSULIN GLARGINE,HUM.REC.ANLOG 100 UNITS/ML SQ SCH (09:00)
[2020-12-20 14:17] LABS: GLUCOMETER DEV NAME(LOC) 2WR.2B; GLUCOSE,POINT OF CARE 253 MG/DL (70-110)
[2020-12-20 14:29] LABS: GLUCOMETER DEV NAME(LOC) 2WR.1C; GLUCOSE,POINT OF CARE 153 MG/DL (70-110)
[2020-12-20 16:04] VITALS: BP 136/87
[2020-12-20 18:35] LABS: GLUCOMETER DEV NAME(LOC) 2WR.1C; GLUCOSE,POINT OF CARE 219 MG/DL (70-110)
[2020-12-20] MEDS: SENNA 187 MG TABLET PO SCH (19:46)
[2020-12-20] MEDS: ATORVASTATIN CALCIUM 20 MG TABLET PO SCH (19:59)
[2020-12-20 21:44] LABS: GLUCOMETER DEV NAME(LOC) 2WR.2B; GLUCOSE,POINT OF CARE 318 MG/DL (70-110)
[2020-12-21 03:50] VITALS: BP 126/84
[2020-12-21 06:20] LABS: GLUCOMETER DEV NAME(LOC) 2WR.2B; GLUCOSE,POINT OF CARE 217 MG/DL (70-110)
[2020-12-21] MEDS: LevETIRAcetam 500 MG TABLET PO SCH ×2 (07:57→20:26)
[2020-12-21] MEDS: CHOLECALCIFEROL (VIT D3) 5,000 [125 MCG] UNITS CAPSULE PO SCH (07:58)
[2020-12-21] MEDS: AmLODIPine BESYLATE 5 MG TABLET PO SCH (07:58)
[2020-12-21] MEDS: CARVEDILOL 6.25 MG TABLET PO SCH ×2 (07:58→20:26)
[2020-12-21] MEDS: ETHYL ALCOHOL 62% ANTISEPTIC NASAL INHALANT 0.6 ML AMPUL NASAL SCH ×2 (08:01→20:26)
[2020-12-21] MEDS: INSULIN LISPRO 100 UNITS/ML SQ PRN ×4 (08:01→20:33)
[2020-12-21] MEDS: DOCUSATE SODIUM 100 MG CAPSULE PO SCH ×2 (09:00→20:27)
[2020-12-21] MEDS ORDERED: INSULIN GLARGINE,HUM.REC.ANLOG 100 UNITS/ML SQ SCH (09:00)
[2020-12-21 09:36] VITALS: BP 134/84
[2020-12-21 16:01] VITALS: BP 131/80
[2020-12-21 16:03] LABS: GLUCOMETER DEV NAME(LOC) 2WR.1C; GLUCOSE,POINT OF CARE 168 MG/DL (70-110)
[2020-12-21 18:42] LABS: GLUCOMETER DEV NAME(LOC) 2WR.2B; GLUCOSE,POINT OF CARE 337 MG/DL (70-110)
[2020-12-21] MEDS: ATORVASTATIN CALCIUM 20 MG TABLET PO SCH (20:26)
[2020-12-21] MEDS: SENNA 187 MG TABLET PO SCH (20:27)
[2020-12-21 21:12] LABS: GLUCOMETER DEV NAME(LOC) 2WR.2B; GLUCOSE,POINT OF CARE 224 MG/DL (70-110)
[2020-12-22 03:15] VITALS: BP 141/73
[2020-12-22 05:36] LABS: GLUCOMETER DEV NAME(LOC) 2WR.1C; GLUCOSE,POINT OF CARE 169 MG/DL (70-110)
[2020-12-22 07:07] LABS: BASOPHILS % (AUTO) 1.2 % (0.0-2.0); EOSINOPHILS % (AUTO) 2.2 % (1.0-6.0); HEMATOCRIT 35.9 % (36-46); HEMOGLOBIN 11.8 g/dL (12.0-16.0); LYMPHOCYTES # (AUTO) 1.8 K/uL (1.0-4.8); LYMPHOCYTES % (AUTO) 17.5 % (22.0-44.0); MEAN CORPUSCULAR HEMOGLOBIN 28.8 pg (26.0-34.0); MEAN CORPUSCULAR VOLUME 87 fL (80-100); MONOCYTES # (AUTO) 0.8 K/uL (0.1-1.0); MONOCYTES % (AUTO) 7.6 % (2.0-9.0); NEUTROPHILS # (AUTO) 7.5 K/uL (1.8-7.7); NEUTROPHILS % (AUTO) 71.5 % (40.0-70.0); PLATELET COUNT (AUTO) 301 K/uL (150-450); RED BLOOD CELL COUNT(AUTO) 4.11 MIL/uL (4.00-5.20); RED CELL DISTRIBUTION WIDTH 12.7 % (11.5-14.5)
[2020-12-22 07:15] LABS: CALCIUM, TOTAL 8.6 mg/dL (8.8-10.5); CREATININE 3.1 mg/dL (0.60-1.30); PHOSPHORUS 3.1 mg/dL (2.5-4.9)
[2020-12-22] MEDS: ETHYL ALCOHOL 62% ANTISEPTIC NASAL INHALANT 0.6 ML AMPUL NASAL SCH ×2 (07:55→21:11)
[2020-12-22] MEDS: CHOLECALCIFEROL (VIT D3) 5,000 [125 MCG] UNITS CAPSULE PO SCH (07:55)
[2020-12-22] MEDS: LevETIRAcetam 500 MG TABLET PO SCH ×2 (07:56→21:12)
[2020-12-22] MEDS: DOCUSATE SODIUM 100 MG CAPSULE PO SCH ×2 (07:56→21:12)
[2020-12-22] MEDS: AmLODIPine BESYLATE 5 MG TABLET PO SCH (07:56)
[2020-12-22] MEDS: CARVEDILOL 6.25 MG TABLET PO SCH ×2 (07:56→21:12)
[2020-12-22] MEDS: INSULIN LISPRO 100 UNITS/ML SQ PRN ×4 (07:57→21:13)
[2020-12-22] MEDS: INSULIN GLARGINE,HUM.REC.ANLOG 100 UNITS/ML SQ SCH (07:58)
[2020-12-22] MEDS ORDERED: INSULIN GLARGINE,HUM.REC.ANLOG 100 UNITS/ML SQ SCH (09:00)
[2020-12-22 09:40] VITALS: BP 127/77
[2020-12-22] MEDS ORDERED: *PATIENT'S OWN MED [ENTER DRUG, DOSE, FREQUENCY IN COMMENTS] CLINICAL ONE (11:00)
[2020-12-22] MEDS: TRULICITY 0.75 MG/0.5 ML SQ SCH (13:17)
[2020-12-22 14:52] LABS: GLUCOMETER DEV NAME(LOC) 2WR.1C; GLUCOSE,POINT OF CARE 243 MG/DL (70-110)
[2020-12-22 16:10] VITALS: BP 135/73
[2020-12-22 20:15] LABS: GLUCOMETER DEV NAME(LOC) 2WR.1C; GLUCOSE,POINT OF CARE 226 MG/DL (70-110)
[2020-12-22 21:10] VITALS: BP 139/82
[2020-12-22] MEDS: SENNA 187 MG TABLET PO SCH (21:12)
[2020-12-22] MEDS: ATORVASTATIN CALCIUM 20 MG TABLET PO SCH (21:12)
[2020-12-22 21:43] LABS: GLUCOMETER DEV NAME(LOC) 2WR.2B; GLUCOSE,POINT OF CARE 198 MG/DL (70-110)
[2020-12-23 03:13] VITALS: BP 139/79
[2020-12-23 06:18] LABS: GLUCOMETER DEV NAME(LOC) 2WR.2B; GLUCOSE,POINT OF CARE 158 MG/DL (70-110)
[2020-12-23] MEDS: AmLODIPine BESYLATE 5 MG TABLET PO SCH (08:05)
[2020-12-23] MEDS: CARVEDILOL 6.25 MG TABLET PO SCH ×2 (08:05→20:37)
[2020-12-23] MEDS: ETHYL ALCOHOL 62% ANTISEPTIC NASAL INHALANT 0.6 ML AMPUL NASAL SCH ×2 (08:05→20:35)
[2020-12-23] MEDS: LevETIRAcetam 500 MG TABLET PO SCH ×2 (08:05→20:37)
[2020-12-23] MEDS: CHOLECALCIFEROL (VIT D3) 5,000 [125 MCG] UNITS CAPSULE PO SCH (08:06)
[2020-12-23] MEDS: DOCUSATE SODIUM 100 MG CAPSULE PO SCH ×2 (08:06→20:37)
[2020-12-23] MEDS: INSULIN GLARGINE,HUM.REC.ANLOG 100 UNITS/ML SQ SCH (08:08)
[2020-12-23] MEDS: INSULIN LISPRO 100 UNITS/ML SQ PRN ×4 (08:10→20:36)
[2020-12-23 09:13] VITALS: BP 126/74
[2020-12-23 12:06] LABS: GLUCOMETER DEV NAME(LOC) 2WR.2B; GLUCOSE,POINT OF CARE 154 MG/DL (70-110)
[2020-12-23 16:00] VITALS: BP 128/75
[2020-12-23 19:17] LABS: GLUCOMETER DEV NAME(LOC) 2WR.2B; GLUCOSE,POINT OF CARE 149 MG/DL (70-110)
[2020-12-23 20:32] VITALS: BP 126/83
[2020-12-23] MEDS: SENNA 187 MG TABLET PO SCH (20:37)
[2020-12-23] MEDS: ATORVASTATIN CALCIUM 20 MG TABLET PO SCH (20:37)
[2020-12-23 21:02] LABS: GLUCOMETER DEV NAME(LOC) 2WR.2B; GLUCOSE,POINT OF CARE 150 MG/DL (70-110)
[2020-12-24 02:15] VITALS: BP 129/77
[2020-12-24 05:43] LABS: GLUCOMETER DEV NAME(LOC) 2WR.2B; GLUCOSE,POINT OF CARE 183 MG/DL (70-110)
[2020-12-24] MEDS: CARVEDILOL 6.25 MG TABLET PO SCH ×2 (07:53→20:12)
[2020-12-24] MEDS: AmLODIPine BESYLATE 5 MG TABLET PO SCH (07:53)
[2020-12-24] MEDS: LevETIRAcetam 500 MG TABLET PO SCH ×2 (07:54→20:12)
[2020-12-24] MEDS: ETHYL ALCOHOL 62% ANTISEPTIC NASAL INHALANT 0.6 ML AMPUL NASAL SCH ×2 (07:54→20:12)
[2020-12-24] MEDS: DOCUSATE SODIUM 250 MG CAPSULE PO SCH ×2 (07:54→20:11)
[2020-12-24] MEDS: CHOLECALCIFEROL (VIT D3) 5,000 [125 MCG] UNITS CAPSULE PO SCH (07:54)
[2020-12-24] MEDS: INSULIN GLARGINE,HUM.REC.ANLOG 100 UNITS/ML SQ SCH (08:04)
[2020-12-24] MEDS: INSULIN LISPRO 100 UNITS/ML SQ PRN ×3 (08:05→21:04)
[2020-12-24 08:30] VITALS: BP 139/77
[2020-12-24 11:49] LABS: GLUCOMETER DEV NAME(LOC) 2WR.2B; GLUCOSE,POINT OF CARE 202 MG/DL (70-110)
[2020-12-24 16:05] VITALS: BP 134/75
[2020-12-24 18:40] LABS: GLUCOMETER DEV NAME(LOC) 2WR.2B; GLUCOSE,POINT OF CARE 113 MG/DL (70-110)
[2020-12-24 20:10] VITALS: BP 131/72
[2020-12-24] MEDS: ATORVASTATIN CALCIUM 20 MG TABLET PO SCH (20:12)
[2020-12-24] MEDS: SENNA 187 MG TABLET PO SCH (20:12)
[2020-12-24 21:50] LABS: GLUCOMETER DEV NAME(LOC) 2WR.2B; GLUCOSE,POINT OF CARE 156 MG/DL (70-110)
[2020-12-25] VITALS: BP 136/92
[2020-12-25] MEDS ORDERED: DOCU-350 PO (05:54)
[2020-12-25] MEDS ORDERED: DULA0.75 SQ (05:54)
[2020-12-25 06:01] LABS: GLUCOMETER DEV NAME(LOC) 2WR.2B; GLUCOSE,POINT OF CARE 109 MG/DL (70-110)
[2020-12-25] MEDS: DOCUSATE SODIUM 250 MG CAPSULE PO SCH ×2 (07:29→20:10)
[2020-12-25] MEDS: CHOLECALCIFEROL (VIT D3) 5,000 [125 MCG] UNITS CAPSULE PO SCH (07:29)
[2020-12-25] MEDS: CARVEDILOL 6.25 MG TABLET PO SCH ×2 (07:30→20:11)
[2020-12-25] MEDS: AmLODIPine BESYLATE 5 MG TABLET PO SCH (07:30)
[2020-12-25] MEDS: LevETIRAcetam 500 MG TABLET PO SCH ×2 (07:30→20:10)
[2020-12-25] MEDS: ETHYL ALCOHOL 62% ANTISEPTIC NASAL INHALANT 0.6 ML AMPUL NASAL SCH ×2 (08:09→20:11)
[2020-12-25] MEDS: INSULIN GLARGINE,HUM.REC.ANLOG 100 UNITS/ML SQ SCH (08:10)
[2020-12-25 09:00] VITALS: BP 129/90
[2020-12-25] MEDS: INSULIN LISPRO 100 UNITS/ML SQ PRN ×2 (12:40→21:08)
[2020-12-25 12:52] LABS: GLUCOMETER DEV NAME(LOC) 2WR.2B; GLUCOSE,POINT OF CARE 166 MG/DL (70-110)
[2020-12-25 16:22] VITALS: BP 121/76
[2020-12-25 17:53] LABS: GLUCOMETER DEV NAME(LOC) 2WR.2B; GLUCOSE,POINT OF CARE 84 MG/DL (70-110)
[2020-12-25] MEDS: ATORVASTATIN CALCIUM 20 MG TABLET PO SCH (20:10)
[2020-12-25] MEDS: SENNA 187 MG TABLET PO SCH (20:11)
[2020-12-25 21:33] LABS: GLUCOMETER DEV NAME(LOC) 2WR.2B; GLUCOSE,POINT OF CARE 189 MG/DL (70-110)
[2020-12-26 01:00] VITALS: BP 142/98
[2020-12-26 05:58] LABS: GLUCOMETER DEV NAME(LOC) 2WR.1C; GLUCOSE,POINT OF CARE 111 MG/DL (70-110)
[2020-12-26 07:45] LABS: CALCIUM, TOTAL 9.2 mg/dL (8.8-10.5); CREATININE 2.42 mg/dL (0.60-1.30); POTASSIUM 4.2 mmol/L (3.5-5.1)
[2020-12-26] MEDS: ETHYL ALCOHOL 62% ANTISEPTIC NASAL INHALANT 0.6 ML AMPUL NASAL SCH ×2 (08:29→19:57)
[2020-12-26] MEDS: AmLODIPine BESYLATE 5 MG TABLET PO SCH (08:30)
[2020-12-26] MEDS: CHOLECALCIFEROL (VIT D3) 5,000 [125 MCG] UNITS CAPSULE PO SCH (08:30)
[2020-12-26] MEDS: CARVEDILOL 6.25 MG TABLET PO SCH ×2 (08:30→19:57)
[2020-12-26] MEDS: LevETIRAcetam 500 MG TABLET PO SCH ×2 (08:30→19:57)
[2020-12-26] MEDS: DOCUSATE SODIUM 250 MG CAPSULE PO SCH ×2 (08:31→19:57)
[2020-12-26] MEDS: INSULIN GLARGINE,HUM.REC.ANLOG 100 UNITS/ML SQ SCH (08:33)
[2020-12-26 08:46] VITALS: BP 141/82
[2020-12-26 16:01] VITALS: BP 132/76
[2020-12-26 17:46] LABS: GLUCOMETER DEV NAME(LOC) 2WR.2B; GLUCOSE,POINT OF CARE 98 MG/DL (70-110)
[2020-12-26 19:55] VITALS: BP 122/75
[2020-12-26] MEDS: ATORVASTATIN CALCIUM 20 MG TABLET PO SCH (19:57)
[2020-12-26] MEDS: SENNA 187 MG TABLET PO SCH (19:57)
[2020-12-26 22:13] LABS: GLUCOMETER DEV NAME(LOC) 2WR.2B; GLUCOSE,POINT OF CARE 138 MG/DL (70-110)
[2020-12-27 03:02] VITALS: BP 124/77
[2020-12-27 03:22] LABS: GLUCOMETER DEV NAME(LOC) 2WR.1C; GLUCOSE,POINT OF CARE 110 MG/DL (70-110)
[2020-12-27 07:12] LABS: GLUCOMETER DEV NAME(LOC) 2WR.1C; GLUCOSE,POINT OF CARE 102 MG/DL (70-110)
[2020-12-27] MEDS: ETHYL ALCOHOL 62% ANTISEPTIC NASAL INHALANT 0.6 ML AMPUL NASAL SCH ×2 (08:17→20:49)
[2020-12-27] MEDS: LevETIRAcetam 500 MG TABLET PO SCH ×2 (08:18→20:49)
[2020-12-27] MEDS: AmLODIPine BESYLATE 5 MG TABLET PO SCH (08:18)
[2020-12-27] MEDS: CHOLECALCIFEROL (VIT D3) 5,000 [125 MCG] UNITS CAPSULE PO SCH (08:18)
[2020-12-27] MEDS: CARVEDILOL 6.25 MG TABLET PO SCH ×2 (08:18→20:49)
[2020-12-27] MEDS: INSULIN GLARGINE,HUM.REC.ANLOG 100 UNITS/ML SQ SCH (08:19)
[2020-12-27] MEDS: DOCUSATE SODIUM 250 MG CAPSULE PO SCH ×2 (08:21→20:49)
[2020-12-27 08:32] VITALS: BP 149/85
[2020-12-27] MEDS: INSULIN LISPRO 100 UNITS/ML SQ PRN ×2 (12:15→20:56)
[2020-12-27 16:10] VITALS: BP 129/72
[2020-12-27 17:51] LABS: GLUCOMETER DEV NAME(LOC) 2WR.2B; GLUCOSE,POINT OF CARE 91 MG/DL (70-110)
[2020-12-27 20:30] VITALS: BP 132/80
[2020-12-27] MEDS: ATORVASTATIN CALCIUM 20 MG TABLET PO SCH (20:49)
[2020-12-27] MEDS: SENNA 187 MG TABLET PO SCH (21:00)
[2020-12-27 21:34] LABS: GLUCOMETER DEV NAME(LOC) 2WR.2B; GLUCOSE,POINT OF CARE 155 MG/DL (70-110)
[2020-12-27 23:27] LABS: GLUCOMETER DEV NAME(LOC) 2WR.1C; GLUCOSE,POINT OF CARE 155 MG/DL (70-110)
[2020-12-28 02:00] VITALS: BP 135/79
[2020-12-28 05:59] LABS: GLUCOMETER DEV NAME(LOC) 2WR.1C; GLUCOSE,POINT OF CARE 87 MG/DL (70-110)
[2020-12-28] MEDS: ETHYL ALCOHOL 62% ANTISEPTIC NASAL INHALANT 0.6 ML AMPUL NASAL SCH ×2 (08:17→20:21)
[2020-12-28] MEDS: AmLODIPine BESYLATE 5 MG TABLET PO SCH (08:17)
[2020-12-28] MEDS: CHOLECALCIFEROL (VIT D3) 5,000 [125 MCG] UNITS CAPSULE PO SCH (08:17)
[2020-12-28] MEDS: CARVEDILOL 6.25 MG TABLET PO SCH ×2 (08:18→20:21)
[2020-12-28] MEDS: LevETIRAcetam 500 MG TABLET PO SCH ×2 (08:18→20:20)
[2020-12-28] MEDS: INSULIN GLARGINE,HUM.REC.ANLOG 100 UNITS/ML SQ SCH (08:20)
[2020-12-28] MEDS: DOCUSATE SODIUM 250 MG CAPSULE PO SCH ×2 (08:22→20:21)
[2020-12-28 08:46] VITALS: BP 140/85
[2020-12-28 16:01] VITALS: BP 130/77
[2020-12-28 17:37] LABS: GLUCOMETER DEV NAME(LOC) 2WR.1C; GLUCOSE,POINT OF CARE 108 MG/DL (70-110)
[2020-12-28 18:09] LABS: GLUCOMETER DEV NAME(LOC) 2WR.2B; GLUCOSE,POINT OF CARE 137 MG/DL (70-110)
[2020-12-28] MEDS: ATORVASTATIN CALCIUM 20 MG TABLET PO SCH (20:21)
[2020-12-28] MEDS: SENNA 187 MG TABLET PO SCH (20:21)
[2020-12-28] MEDS: INSULIN LISPRO 100 UNITS/ML SQ PRN (20:32)
[2020-12-28 21:08] LABS: GLUCOMETER DEV NAME(LOC) 2WR.2B; GLUCOSE,POINT OF CARE 156 MG/DL (70-110)
[2020-12-29 02:00] VITALS: BP 141/90
[2020-12-29 05:59] LABS: GLUCOMETER DEV NAME(LOC) 2WR.2B; GLUCOSE,POINT OF CARE 102 MG/DL (70-110)
[2020-12-29] MEDS: CHOLECALCIFEROL (VIT D3) 5,000 [125 MCG] UNITS CAPSULE PO SCH (08:47)
[2020-12-29] MEDS: ETHYL ALCOHOL 62% ANTISEPTIC NASAL INHALANT 0.6 ML AMPUL NASAL SCH ×2 (08:47→20:11)
[2020-12-29] MEDS: DOCUSATE SODIUM 250 MG CAPSULE PO SCH ×2 (08:48→20:11)
[2020-12-29] MEDS: AmLODIPine BESYLATE 5 MG TABLET PO SCH (08:48)
[2020-12-29] MEDS: CARVEDILOL 6.25 MG TABLET PO SCH ×2 (08:48→20:11)
[2020-12-29] MEDS: LevETIRAcetam 500 MG TABLET PO SCH ×2 (08:48→20:11)
[2020-12-29] MEDS: INSULIN GLARGINE,HUM.REC.ANLOG 100 UNITS/ML SQ SCH (08:52)
[2020-12-29] MEDS: TRULICITY 0.75 MG/0.5 ML SQ SCH (08:53)
[2020-12-29 09:45] VITALS: BP 127/73
[2020-12-29] MEDS ORDERED: COVID-19 VACCINE, MRNA(PFIZER)/PF 30 MCG/0.3 ML VIAL IM. ONE (11:45)
[2020-12-29 13:05] LABS: GLUCOMETER DEV NAME(LOC) 2WR.2B; GLUCOSE,POINT OF CARE 86 MG/DL (70-110)
[2020-12-29 16:30] VITALS: BP 127/74
[2020-12-29 18:47] LABS: GLUCOMETER DEV NAME(LOC) 2WR.2B; GLUCOSE,POINT OF CARE 111 MG/DL (70-110)
[2020-12-29] MEDS: ATORVASTATIN CALCIUM 20 MG TABLET PO SCH (20:11)
[2020-12-29] MEDS: SENNA 187 MG TABLET PO SCH (20:11)
[2020-12-29 20:17] VITALS: BP 144/90
[2020-12-29 21:51] LABS: GLUCOMETER DEV NAME(LOC) 2WR.2B; GLUCOSE,POINT OF CARE 131 MG/DL (70-110)
[2020-12-29 23:30] VITALS: BP 139/89
[2020-12-30] VITALS: BP 139/89
[2020-12-30 06:11] LABS: GLUCOMETER DEV NAME(LOC) 2WR.1C; GLUCOSE,POINT OF CARE 94 MG/DL (70-110)
[2020-12-30] MEDS: INSULIN GLARGINE,HUM.REC.ANLOG 100 UNITS/ML SQ SCH (08:21)
[2020-12-30] MEDS: ETHYL ALCOHOL 62% ANTISEPTIC NASAL INHALANT 0.6 ML AMPUL NASAL SCH (08:24)
[2020-12-30] MEDS: AmLODIPine BESYLATE 5 MG TABLET PO SCH (08:25)
[2020-12-30] MEDS: LevETIRAcetam 500 MG TABLET PO SCH (08:25)
[2020-12-30] MEDS: CARVEDILOL 6.25 MG TABLET PO SCH (08:25)
[2020-12-30] MEDS: CHOLECALCIFEROL (VIT D3) 5,000 [125 MCG] UNITS CAPSULE PO SCH (08:25)
[2020-12-30] MEDS: DOCUSATE SODIUM 250 MG CAPSULE PO SCH (08:25)
[2020-12-30 09:36] VITALS: BP 135/92
[2020-12-30 10:30] LABS: COVID AG,FIA SOURCE NASAL SWAB
[2020-12-30 15:01] LABS: GLUCOMETER DEV NAME(LOC) 2WR.1C; GLUCOSE,POINT OF CARE 72 MG/DL (70-110)
[2020-12-30 16:00] VITALS: BP 142/85
[2020-12-30 18:39] LABS: GLUCOMETER DEV NAME(LOC) 2WR.1C; GLUCOSE,POINT OF CARE 121 MG/DL (70-110)
== END 2020-12-30 17:45 | disposition home health service (06) | DRG 44 ==
LOC: 2WR 17:55
PROVIDERS: ADMIT Physical Medicine & Rehabilitation; ATTEND Physical Medicine & Rehabilitation
DX: I61.3 Nontraumatic intracerebral hemorrhage in brain stem (principal); I63.519 Cerebral infarction due to unspecified occlusion or stenosis of unspecified middle cerebral artery; N17.9 Acute kidney failure, unspecified; E46 Unspecified protein-calorie malnutrition; E87.2 Acidosis; E11.319 Type 2 diabetes mellitus with unspecified diabetic retinopathy without macular edema; D63.8 Anemia in other chronic diseases classified elsewhere; G81.94 Hemiplegia, unspecified affecting left nondominant side; E11.22 Type 2 diabetes mellitus with diabetic chronic kidney disease; N25.81 Secondary hyperparathyroidism of renal origin; D64.9 Anemia, unspecified; E11.65 Type 2 diabetes mellitus with hyperglycemia; I12.9 Hypertensive chronic kidney disease with stage 1 through stage 4 chronic kidney disease, or unspecified chronic kidney disease; N18.4 Chronic kidney disease, stage 4 (severe); E21.3 Hyperparathyroidism, unspecified; R13.12 Dysphagia, oropharyngeal phase; Z20.822 Contact with and (suspected) exposure to COVID-19; R32 Unspecified urinary incontinence; Z79.899 Other long term (current) drug therapy; Z86.73 Personal history of transient ischemic attack (TIA), and cerebral infarction without residual deficits; Z91.11 Patient's noncompliance with dietary regimen; Z91.19 Patient's noncompliance with other medical treatment and regimen; Z68.22 Body mass index [BMI] 22.0-22.9, adult
CPT/HCPCS: 0001A; 80048; 80053; 82962; 83735; 84100; 85025; 87081; 91300; 92507; 92523; 92526; 93970; 97110; 97112; 97116; 97150; 97163; 97166; 97530; 97535; 99366; J1815; Q9967